=== PATIENT | male | born 1990 | race Hispanic/Latino ===

== ENCOUNTER 2019-01-29 04:44 | Emergency (ER) | payer MEDICAID ==
--- NOTE | 2019-01-29 05:10 | EDM.PDOC ---
ED HPI GENERAL MEDICAL PROBLEM - General Chief Complaint: ENT Problem Stated Complaint: EAR PAIN Time Seen by Provider: 01/29/19 04:54 Source of Information: Reports: Patient, Family (), RN Notes Reviewed History Limitations: Reports: No Limitations - History of Present Illness INITIAL COMMENTS - FREE TEXT/NARRATIVE: The patient states that he has had left ear pain, progressively getting worse, since approximately 01/25/2019. He reports decreased hearing in his left ear. No tinnitus. No external drainage. No recent fever. The patient states that he has not tried any mhus-ucy-psbgfis medicines or home remedies to treat his ear pain. The patient states that he has a history of prior ear infections after an injury to his left tympanic membrane as a child. The patient does not have a PCP. Left Ear Pain Score (Numeric/FACES): 8 - Related Data Allergies Allergy/AdvReac Type Severity Reaction Status Date / Time No Known Allergies Allergy Verified 01/29/19 04:56 Home Meds: Home Meds Amoxicillin/Clavulanate K [Augmentin 875-125 MG] 1 tab PO Q12H #10 tablet [Rx] Past Medical History - Past Surgical History HEENT Surgical History: Reports: Other (See Below) (Left ear sugery as a child) Social & Family History - Tobacco Use Smoking Status *Q: Current Every Day Smoker Years of Tobacco use: 7 Packs/Tins Daily: 0.5 - Alcohol Use Alcohol Use History: Yes Alcohol Use Frequency: Socially - Recreational Drug Use Recreational Drug Use: Yes Drug Use in Last 12 Months: No Recreational Drug Type: Reports: Marijuana/Hashish (last smoked when 19 years old) - Living Situation & Occupation Living situation: Reports: , with Spouse, with Family (9 year old daughter) Occupation: Employed ([employer]) ED ROS ENT - Review of Systems Review Of Systems: ROS reveals no pertinent complaints other than HPI. ED EXAM, ENT - Physical Exam Exam: See Below Exam Limited By: No Limitations General Appearance: Alert, WD/WN, No Apparent Distress Eye Exam: Bilateral Eye: EOMI, Normal Inspection Ears: Normal External Exam, Normal Canal, Canal Material (left only, hard- appearing cerumen), Other (Right TM with scarring, but no erythema). No: Mastoid Swelling, Mastoid Tenderness, Canal Swelling Nose: Normal Inspection, Normal Mucousa, No Blood Mouth/Throat: Normal Inspection, Normal Gums, Normal Lips, Normal Oropharynx, Normal Teeth Head: Atraumatic, Normocephalic Neck: Normal Inspection, Supple, Non-Tender, Full Range of Motion. No: Lymphadenopathy (L), Lymphadenopathy (R) Course - Vital Signs Last Recorded V/S: Last Vital Signs Temp 37.1 C 01/29/19 04:53 Pulse 108 H 01/29/19 04:53 Resp 16 01/29/19 04:53 BP 137/88 01/29/19 04:53 Pulse Ox 100 01/29/19 04:53 - Orders/Labs/Meds Meds: Medications Discontinued Medications Generic Name Dose Route Start Last Admin Trade Name Karen PRN Reason Stop Dose Admin Amoxicillin/Clavulanate Potassium 1 tab 01/29/19 05:19 01/29/19 05:41 Augmentin 875 Mg/125 Mg PO 01/29/19 05:20 1 tab ONETIME ONE Administration - Re-Assessments/Exams Free Text/Narrative Re-Assessment/Exam: 01/29/19 05:09 There is hard-appearing cerumen in the left canal. The visible portion of the canal is normal in appearance, with no erythema or swelling, but the cerumen obscures the view of the tympanic membrane. I have asked Candida VILLA to copiously irrigate the left canal, in an effort to dislodge the cerumen, however, if she is unable, the patient may need to soften the cerumen with several days of Debrox. 01/29/19 05:16 Notified by Candida VILLA that the patient did not tolerate irrigation at all - that the sensation was too "weird" for him. I will treat the patient for presumed otitis media with oral Augmentin. I will have him use lmrp-she-vzalrxc Debrox, and have him follow-up in our clinic on 02/03/2019, for definitive irrigation. Departure - Departure Time of Disposition: 05:23 Disposition: Home, Self-Care 01 Condition: Good Clinical Impression: Left ear pain - Discharge Information *PRESCRIPTION DRUG MONITORING PROGRAM REVIEWED*: Not Applicable *COPY OF PRESCRIPTION DRUG MONITORING REPORT IN PATIENT LAVERN: Not Applicable Prescriptions: Amoxicillin/Clavulanate K [Augmentin 875-125 MG] 1 tab PO Q12H #10 tablet Instructions: Earache, Adult Referrals: Dana Murray PA [Phys[facility]] - Forms: ED Department Discharge Additional Instructions: You were seen in the emergency room for left ear pain since 01/25/2019. On examination, you have hard earwax in your left canal. This is not likely the cause of your pain, but it blocks the view of your middle ear. An attempt was made to irrigate your left ear, without success. You are being treated for a presumed left middle ear infection, although, without being able to see your left middle ear, we do not know for sure that you have an infection. You have been started on the antibiotic Augmentin. A prescription for Augmentin has been sent to the [facility], located in the [employer] store. Take one tablet of Augmentin every 12 hours, starting this evening, Sunday, 2018, as prescribed. Finish the entire prescription unless told otherwise by a provider. Purchase jben-wpy-mavsjoj Debrox, and instill it in your left ear as instructed on the label. This will soften your earwax. You may take ecdw-abn-uhhelly ibuprofen, 2-3 tablets (400-600 mg) every 8 hours , with food, as needed for discomfort. Follow-up with Dana Murray, or one of the other providers in the clinic, this coming 02/03/2019, for definitive earwax irrigation and examination of your left middle ear. If any other problems, please do not hesitate to return to the ER.
[2019-01-29] MEDS: Amoxicillin/Clavulanate K 875-125 MG Tab PO ONE (05:41)
== END 2019-01-29 05:43 | disposition home or self-care (01) ==
LOC: JD.ED 04:44
DX: H92.02 Otalgia, left ear (principal); F17.210 Nicotine dependence, cigarettes, uncomplicated
CPT/HCPCS: 99282; A9270